=== PATIENT | female | born 1985 | race Caucasian/White ===

== ENCOUNTER 2022-08-17 00:02 | Emergency (ER) | payer OTHER, SELFPAY ==
[2022-08-17 00:05] VITALS: BP 154/103; PULSE 86; RESP 16; TEMP 36.8; O2SAT 100
--- NOTE | 2022-08-17 01:36 | ED.SKABFB ---
HPI - Skin/Abscess/Foreign Bdy General Chief complaint: Skin/Abscess/Foreign Body Stated complaint: bug bite to abdomen Time Seen by Provider: 08/17/22 01:20 History of Present Illness HPI narrative: Patient states she was driving earlier today when she fell as sharp sting to her right abdomen, she later noted that there was a dark meagan without surrounding redness, denies any pain or itching, she kept an eye on it and noticed that it started to grow larger. Related Data Allergies Allergy/AdvReac Type Severity Reaction Status Date / Time tramadol AdvReac Hives Verified 08/17/22 01:18 Review of Systems Review of Systems: CONST: No fever. C/V: No chest pain GI: No abdominal pain, nausea or vomiting M/S: No joint pain. SKIN: Rash/bite to right abdomen NEURO: [No headache or focal numbness or weakness] Exam Narrative: EXAMINATION OF ORGAN SYSTEMS/BODY AREAS: Constitutional: Vital signs per nursing GENERAL:[No acute distress, non-toxic appearing.] HEAD: Normal with no signs of head trauma. EYES: EOMI, conjunctiva normal ENT: Hearing grossly intact LUNGS: Nonlabored breathing. HEART: [Regular rate and rhythm] ABD: [Soft], [nontender to palpation], lesion to right abdomen EXT: Normal range of motion SKIN: About 0.5cm purple lesion to right abdomen with 2cm surrounding erythema and induration, no tenderness or pruritis, no blistering NEURO: [Alert and oriented x 3. No gross focal sensory or strength deficits.] PSYCH: Normal affect Course Vital Signs Vital signs: Vital Signs Temperature 98.2 F 08/17/22 00:05 Pulse Rate 86 08/17/22 00:05 Respiratory Rate 16 08/17/22 00:05 Blood Pressure 154/103 H 08/17/22 00:05 Pulse Oximetry 100 08/17/22 00:05 Temperature 98.2 F 08/17/22 00:05 Pulse Rate 84 08/17/22 01:59 Respiratory Rate 20 08/17/22 01:59 Blood Pressure 150/94 H 08/17/22 01:59 Pulse Oximetry 100 08/17/22 01:59 MDM - Skin/Abscess/Foreign Bdy MDM Narrative Medical decision making narrative: 37-year-old female presenting with lesion to her right abdomen which she thinks was a bite, vital signs stable, exam does show a purplish lesion to the right abdomen with surrounding erythema, I suspect likely local reaction to bite or sting given the acute onset of symptoms, doubt infection and no crepitus/tenderness. Counseled wound care, tetanus is updated and prophylactic antibiotics provided given patient concern, return precautions and reassurance provided. Advised her to follow up with her PCP. Discharge Plan Discharge Clinical Impression: Insect bites Patient Disposition: Home, Self-Care Condition: Stable Instructions: Antibiotic Form, Insect Bite or Sting (ED) Additional Instructions: Please follow up with your doctor in the next 1-2 days; keep your wound clean and you can always come back sooner if you notice any changes or worsening symptoms. Prescriptions: New diphenhydramine HCl [Benadryl] 25 mg capsule 25 mg PO TID PRN (Reason: allergic reaction) Qty: 30 0RF cephalexin 500 mg capsule 500 mg PO Q12H Qty: 14 0RF Follow-up/Referrals: [place], [Primary Care Provider] -
[2022-08-17] MEDS: TETANUS,DIPHTHERIA,AC PERTUSSIS ADULT (0.5 ML) BOOSTRIX IM (01:49)
[2022-08-17 01:59] VITALS: BP 150/94; PULSE 84; RESP 20; O2SAT 100
== END 2022-08-17 02:03 | disposition home or self-care (01) ==
PROVIDERS: Emergency Provider Emergency Medicine
DX: S30.861A Insect bite (nonvenomous) of abdominal wall, initial encounter (principal); Z23 Encounter for immunization; W57.XXXA Bitten or stung by nonvenomous insect and other nonvenomous arthropods, initial encounter
CPT/HCPCS: 90471; 90715; 99283